=== PATIENT | female | born 1950 | race Caucasian/White ===

== ENCOUNTER 2017-01-11 22:52 | Emergency (ER) | payer OTHER ==
[~2017-01-11] VITALS: Ht 147.3 cm; Wt 72.6 kg
[2017-01-11 23:15] VITALS: BP_SYST 155
[2017-01-11] MEDS ORDERED: NOR10 PO (23:24)
[2017-01-11] MEDS ORDERED: IBUPROFEN 800 MG TABLET PO ONE (23:30)
[2017-01-12 00:25] VITALS: BP_SYST 143
== END 2017-01-12 00:25 | disposition home or self-care (01) ==
LOC: SED 22:52
DX: S39.012A Strain of muscle, fascia and tendon of lower back, initial encounter (principal); R03.0 Elevated blood-pressure reading, without diagnosis of hypertension; M43.6 Torticollis; Z88.5 Allergy status to narcotic agent; V89.2XXA Person injured in unspecified motor-vehicle accident, traffic, initial encounter; Y93.89 Activity, other specified; Y92.410 Unspecified street and highway as the place of occurrence of the external cause; Y99.8 Other external cause status
CPT/HCPCS: 99283